=== PATIENT | male | born 1940 | race Caucasian/White ===

== ENCOUNTER → 2018-02-23 | Outpatient (CLI) | payer OTHER ==
[~2018-02-23] VITALS: Ht 182.9 cm; Wt 78.9 kg
[~2018-02-23] MED LIST: ANDROGEL75 GM TOP; ASPIRIN81 M2 PO; AVODART0.5 MG PO; AZILECT1 MG PO; CRESTOR20 MG PO; DYMISTA NASAL S23 GM SPRAY; FLECTOR PATCH1 EA TOP; GREEN TEA1 EACH PO; LORZONE750 MG PO; NORCO 10-325 T1 EACH PO; PENNSAID112 GM TOP; ROBAXIN 750 MG750 M1 PO; SINEMET 25-1001 EAC1 PO; VITAMIN D2000 UNIT PO; ZANAFLEX4 MG PO; ZANTAC 150MG T150 MG PO; ZOLOFT50 MG PO; ZOLPIDEM TARTRA10 MG PO
--- NOTE | ~2018-02-23 | HPC ---
[facility] [place] [address] PAIN MANAGEMENT CONSULTATION Name: IVY ANNE Room #: REG [facility] Darrick.#: [id number] Admission: 02/23/18 Attend Phys: Topher Telles DO Discharge: Date of : 42 Report #: [id number] THIS REPORT FOR: //name// CC: JORDYN Telles Referring Physician KALEY OLIVARES DATE OF SERVICE: 02/23/2018 CHIEF COMPLAINT: Low back pain and left lower extremity pain. HISTORY OF PRESENT ILLNESS: As you know, patient is a very pleasant 77-year-old male who has been treated for low back pain and left lower extremity pain with transforaminal epidural injections in the past. He has been referred to our services to undergo next in the series of procedures. The patient indicates that pain re-occurred on 01/07/2018, progressively worsened. He is now placing pain score up to 7-8/10. He states that he typically receives excellent benefit with transforaminal injections and hopeful to see similar improvement. He has been referred to trial this injection once again. The patient indicates today pain is continuous. Describes pain as sharp, numbness and tingling. Places current pain score at 8/10, daily average at 7-8/10, worst the pain has been 9/10. The patient states standing, walking and doing certain activities exacerbate symptoms and lying down tends to improve pain. He has been referred to undergo L5-S1 left transforaminal epidural injection to address his ongoing lumbar radicular pain. PAST MEDICAL HISTORY: 1. Seasonal allergies. 2. Osteoarthritis. 3. Hypotestosteronism. 4. Depression. 5. Dyslipidemia. 6. Benign prostatic hypertrophy. 7. Chronic insomnia. 8. Parkinson disease. 9. Chronic muscle spasms. PAST SURGICAL HISTORY: L5-S1 anterior fusion and posterior decompression. SOCIAL HISTORY: The patient denies tobacco, alcohol, IV illicit drug use. He is retired, retired years ago. He is not receiving workmen's compensation nor is he trying to obtain disability benefits. He is not in litigation in regards to pain. He is unaccompanied today. REVIEW OF SYSTEMS: Positive for cataracts, fatigue and weakness, nocturia, [facility] [address] [place] [address] PAIN MANAGEMENT CONSULTATION Name: IVY ANNE JAHSALTY Room #: REG [facility].#: [id number] Admission: 02/23/18 Attend Phys: Topher Telles DO Discharge: Date of : 42 Report #: [id number] sexual difficulty, Parkinson disease, dyslipidemia, seasonal allergies, chronic low back pain, lower extremity pain and depression. All other review of systems negative per 12-point review of systems, other than those listed in history of present illness. PAIN IMPACT SCORE: 48/70, indicating [id number] interference of daily activities secondary to pain. ALLERGIES: PENICILLIN, PREGABALIN. CURRENT MEDICATIONS: Ranitidine 150 mg once a day, diclofenac gel apply topically up to twice a day, green tea leaf extract 1 tab per day, diclofenac patch topically every 12 hours, cholecalciferol 2000 units per day, aspirin 81 mg per day, testosterone 75 g topically per day, tizanidine 4 mg 3 times a day, sertraline 50 mg per day, Azilect 1 mg per day, rosuvastatin 20 mg per day, Avodart 0.5 mg once a day, zolpidem 10 mg per day, carbidopa/levodopa 25/100 three times a day, hydrocodone/acetaminophen 10/325 one tab every 8 hours p.r.n. for pain, chlorzoxazone 750 mg once a day and methocarbamol 750 mg once a day. IMAGING: No imaging available. PQRS: The patient has known osteoarthritis. No rheumatoid arthritis. His pain intensity is 8/10. He is not a fall risk, has not had a fall in the past 3 months. He is not on blood thinners. He is not treated for hypertension. He has not been on opioids longer than 6 weeks. He is not under opioid contract. He has a low assessment risk for opioid dependency. His pain impact/functional impact shows 48/70, [id number]. PHYSICAL EXAMINATION: VITAL SIGNS: Blood pressure 138/86, pulse 74, respiratory rate 16 and unlabored, patient is 97% on room air, height 6 feet tall, weight 174 pounds and BMI calculated 23.6. GENERAL: Well-developed, well-nourished and well-hydrated 77-year-old male, appears his stated age. He is placing current pain score 7-8/10. HEENT: Normocephalic and atraumatic. Pupils are equal, round and reactive to light. Extraocular muscles are intact. Sclerae nonicteric without injection. NEUROLOGIC: Cranial nerves 2-12 grossly intact. Speech is fluent. He does show tremors consistent with Parkinson disease. LUNGS: Clear. No wheezes, rhonchi or rales. CARDIOVASCULAR: Regular. No appreciable gallop. No rub. ABDOMEN: Soft, nontender and nondistended. EXTREMITIES: Show no clubbing, no cyanosis, no edema. MUSCULOSKELETAL: Lower extremity strength is symmetrical. Slight giveaway strength noted with hip flexion and knee extension on the left when compared to the right. Pain is generated with these maneuvers. Seated straight leg raising mildly positive. Supine straight leg raising positive on left. SOCORRO test [facility] [address] [place] [address] PAIN MANAGEMENT CONSULTATION Name: IVY ANNE Room #: REG [facility] Darrick.#: [id number] Admission: 02/23/18 Attend Phys: Topher Telles DO Discharge: Date of : 42 Report #: [id number] negative. Modified Ga[place]len positive for some axial low back pain. There is a well-healed surgical scar in the lower lumbar region. No palpatory tenderness over the lumbar spine. ASSESSMENT: 1. Lumbar radiculopathy. 2. Lumbar degeneration. 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 4. Facet arthropathy of the lumbar spine. 5. Chronic intractable pain. PLAN: 1. The patient has been referred to our service to undergo L5-S1 left transforaminal epidural injection under fluoroscopic guidance. The patient was receiving these from his previous pain physician and was noticing 100% improvement of overall pain, lasting for months at a time. He has been referred to our clinic to undergo this procedure. We discussed with the patient the risks and the benefits. These risks include but are not necessarily limited to bleeding, bruising, infection, worsening of pain, no relief of pain, also risk of temporary or permanent muscle weakness, temporary or permanent nerve damage, possible paralysis, post-dural puncture headache and . The patient states understood and wished to proceed. 2. No medication changes were made at today's visit. The patient will continue current medical therapy as previously prescribed. 3. We will see the patient back in followup visit on an as needed basis for possible next in the series of injections. 4. We wish to thank the referring physician for the opportunity to see this patient in consultation. We will keep you apprised of his response to treatment as we address his ongoing pain. Again, we wish to thank you for the opportunity to see him in consultation. <ELECTRONICALLY SIGNED> By: Topher Telles DO 03/02/18 1400 [id number] Topher Telles DO /nt
--- NOTE | ~2018-02-23 | P ---
[facility] [place] [address] PROCEDURE REPORT Name: IVY ANNE Room #: REG Shashi Lundberg#: [id number] Admission: 02/23/18 Attend Phys: Topher Telles DO Discharge: Date of : 42 Report #: [id number] THIS REPORT FOR: //name// CC: JORDYN BYRDANT DATE OF SERVICE: 02/23/2018 DESCRIPTION OF PROCEDURE: L5-S1 left transforaminal epidural steroid injection under fluoroscopic guidance. This is the first procedure of the first series, the patient is undergoing. After obtaining written consent, the patient was taken back to the fluoroscopy suite, placed in a prone position with pillow under the abdomen to decrease lumbar lordosis. Skin overlying the lumbosacral area was then prepped and draped in aseptic fashion. The L5-S1 vertebrae were identified by fluoroscopy. The neural foramen (6 o'clock position of the pedicle) was then identified utilizing an oblique fluoroscopic view. The skin and subcutaneous tissue overlying the target site of injection was then anesthetized with 3 mL of 1% lidocaine. Using a "tunnel view," a 22-gauge, 4-1/2-inch Tuohy needle with a bent tip was advanced towards the left epidural space under fluoroscopic guidance. The final position of the needle was identified using AP and lateral views. There were no paresthesias with final positioning of the needle. After negative aspiration for heme or cerebrospinal fluid, a total of 0.5 mL of Omnipaque was injected under live AP fluoroscopy to demonstrated absence of vascular uptake. AP and lateral imaging demonstrated an excellent L5 neurogram, epidurogram. Pain provocation by the injected contrast material was positive. After negative aspiration for heme or cerebrospinal fluid, 3 mL of a solution containing 80 mg triamcinolone, 1 mL of lidocaine 1% was injected in increments. The needle was then retracted approximately retirement and the needle tract flushed with 1 mL of 1% lidocaine. A sterile bandage placed over the injection site. There were no new motor deficits present in the lower extremities following the procedure. The heart rate, pulse oximetry and blood pressure were continuously monitored after the procedure. There were no apparent complications. The patient tolerated the procedure well and was carefully escorted to the recovery room in stable condition. After meeting discharge criteria, the patient was discharged home. <ELECTRONICALLY SIGNED> By: Topher Telles DO 03/02/18 1403 [id number] Topher Telles DO /nt
[2018-02-23 13:03] VITALS: BP 138/86
== END | disposition home or self-care (01) ==
LOC: PAIN 07:01
DX: M54.16 Radiculopathy, lumbar region (principal); M51.36 Other intervertebral disc degeneration, lumbar region; M48.061 Spinal stenosis, lumbar region without neurogenic claudication; M12.88 Other specific arthropathies, not elsewhere classified, other specified site; G89.29 Other chronic pain; E78.5 Hyperlipidemia, unspecified; N40.0 Benign prostatic hyperplasia without lower urinary tract symptoms; G20 Parkinson's disease; M62.838 Other muscle spasm; F51.04 Psychophysiologic insomnia; F32.9 Major depressive disorder, single episode, unspecified; Z88.0 Allergy status to penicillin; Z88.8 Allergy status to other drugs, medicaments and biological substances; Z79.899 Other long term (current) drug therapy; Z79.82 Long term (current) use of aspirin; Z79.891 Long term (current) use of opiate analgesic; Z98.890 Other specified postprocedural states